=== PATIENT | male | born 1970 | race Caucasian/White ===

== ENCOUNTER 2022-12-08 08:22 | Outpatient (RCR) | payer OTHER, SELFPAY ==
--- NOTE | 2022-12-08 09:31 | PTOPEVAL1 ---
Assessment and note entered by JT File, PT Evaluation Information Assessment Status Evaluation Diagnosis R RTC repair Onset 09/20/22 Subjective Information surgery was on 10/19/22. 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 he reports he missed a step at work and fell directly on a pallet on his R shoulder. he reports it was immediately weak. he thought it was dislocated but found out through imaging that the RTC was torn. he reports he hasd surgery on 10/19/22 to repair the tear. he reports he got the sling off about 9-10 days ago. he reports for work he must be able to work with his UE's for full work days. he reports he has to reach and perform UE activities at shoulder level and above. he reports he would need to push and pull 100lbs of force. he reports he also must lift 50-100lbs. he reports he does have a mechanical hoist at work to help with lifting. he reports he has to use a hammer/bumper bar to move things at work. Reported Pain Level Pain Score 0: Self Report Assessment PT Clinical Summary mr. cope is a 52 yo manw ho presents to skilled PT services for rehab following injury and surgery to the R shoulder. he tore his RTC at work and had a repair on 10/19/22. he is now transitioned to phase 2 of his rehab protocol and is ready to begin passive, active assisted, and active rom exercises. he is still limited to no resistance exercises of the R shoulder. he would benefit from continued skilled PT to improve his deficits in rom, strength, and functional lifting to return to prior level work and functional activity performance. Plan of Care Interventions Electrical Stimulation,Hot Pack/Cold Pack,Manual Therapy,Neuro Re-education,Patient/Caregiver Educati,Therapeutic Activities,Therapeutic Exercise PT Services Indicated Yes Treatment Frequency and 3x weekly for 24 visits Duration These treatments will address the objective and functional deficits as defined above. The patient will be advanced safely and appropriately in order for the patient to progress towards his/her prior level of function. Additional exercises will be introduced and as well as a comprehensive home exercise program upon discharge, if needed, ?to ensure carryover of functional gains achieved in the clinic. This treatment plan has been reviewed and agreement upon by the patient.
--- NOTE | 2022-12-28 09:06 | PTOPPROGNS ---
Assessment and note entered by JT File, PT Evaluation Information Assessment Status Progress Diagnosis R RTC repair Onset 09/20/22 Subjective Information patient reports the R shoulder feels Alright this date. he reports he had a lot of pain in the R shoulder when he woke up yesterday. however, he was able to manage to loosen it up with heat and exercises at home. Assessment PT Clinical Summary mr. cope presents to skilled PT for his 10th skilled therapy visit. he presents today with improved passive and active R shoulder mobility. however, he is still limited to no strengthening exercises, and has moderate to severe pain in the R shoulder at times. despite this pain, patient has made progressed each week, and is managing pain with exercises/modalities. he would benefit from continued skilled PT per initial POC to achieve goals set forth at initial evaluation. Plan of Care Interventions Electrical Stimulation,Hot Pack/Cold Pack,Manual Therapy,Neuro Re-education,Patient/Caregiver Educati,Therapeutic Activities,Therapeutic Exercise PT Services Indicated Yes Treatment Frequency and continue skilled PT 3x weekly for 14 more visits Duration per initial POC These treatments will address the objective and functional deficits as defined above. The patient will be advanced safely and appropriately in order for the patient to progress towards his/her prior level of function. Additional exercises will be introduced and as well as a comprehensive home exercise program upon discharge, if needed, ?to ensure carryover of functional gains achieved in the clinic. This treatment plan has been reviewed and agreement upon by the patient.
--- NOTE | 2023-01-14 09:03 | PTOPPROGNS ---
Assessment and note entered by JT File, PT Evaluation Information Assessment Status Progress Diagnosis R RTC repair Onset 09/20/22 Subjective Information patient reports he is sore today, but reports he is not in much pain today. he reports he has a follow up with the surgeon on tuesday. he is hopeful to begin strengthening of the R shoulder. Assessment PT Clinical Summary mr. cope presents to skilled PT for his 18th skilled therapy visit today. he is 12 weeks +3 days from his R shoulder surgery. he presents today with improved R shoulder active and passive mobility. however, he still has catches of sharp pain at times, and pain with end rom passive mobility of the R shoulder. he would do well to continue skilled PT to improve ROM to achieve goals and prior functional reaching. he would benefit from the addition of shoulder strengthening exercises to improve his functional reaching/lifting and to help reduce pain in the R shoulder musculature. plan to continue skilled PT per frequency and duration listed on the initial evaluation. Plan of Care Interventions Electrical Stimulation,Hot Pack/Cold Pack,Manual Therapy,Neuro Re-education,Patient/Caregiver Educati,Therapeutic Activities,Therapeutic Exercise PT Services Indicated Yes Treatment Frequency and continue skilled PT 3x weekly for 6 more visits Duration per the initial POC These treatments will address the objective and functional deficits as defined above. The patient will be advanced safely and appropriately in order for the patient to progress towards his/her prior level of function. Additional exercises will be introduced and as well as a comprehensive home exercise program upon discharge, if needed, ?to ensure carryover of functional gains achieved in the clinic. This treatment plan has been reviewed and agreement upon by the patient.
--- NOTE | 2023-02-10 18:14 | PTOPREEVAL ---
Assessment and note entered by JT File, PT Evaluation Information Assessment Status Re-evaluation Diagnosis R RTC repair Onset 09/20/22 Subjective Information patient reports he continues to feel stiff in the R shoulder. he reports he has low pain today, but at times has bouts of increased pain as well in the R shoulder. he reports he needs to be able to lift overhead moderate to heavy weight to return to full work duties. Reported Pain Level Pain Score 3: Self Report Assessment PT Clinical Summary mr. cope presents to skilled PT for his 24th skilled PT visit following R shoulder surgery. he continues to present with tightness and weakness in the R shoulder. he is limited in arom flexion, ER, and IR. he has met goals for HEP performance, but continues to have not met goals for rom, strength, and functional abilities for return to work. he would benefit from continued skilled PT to improve his objective/functional deficits and achieve all goals in preparation for full return to work duties. Plan of Care Interventions Electrical Stimulation,Hot Pack/Cold Pack,Manual Therapy,Neuro Re-education,Patient/Caregiver Educati,Therapeutic Activities,Therapeutic Exercise PT Services Indicated Yes Treatment Frequency and continue skilled PT 3x weekly for 24 more visits Duration These treatments will address the objective and functional deficits as defined above. The patient will be advanced safely and appropriately in order for the patient to progress towards his/her prior level of function. Additional exercises will be introduced and as well as a comprehensive home exercise program upon discharge, if needed, ?to ensure carryover of functional gains achieved in the clinic. This treatment plan has been reviewed and agreement upon by the patient.
== END 2023-03-07 19:00 | disposition home or self-care (01) ==
LOC: CHSPT 08:22
DX: S46.011D Strain of muscle(s) and tendon(s) of the rotator cuff of right shoulder, subsequent encounter (principal)
CPT/HCPCS: 97014; 97110; 97140; 97150; 97161; G0283

== ENCOUNTER 2023-05-30 07:52 | Outpatient (RCR) | payer OTHER, SELFPAY ==
[2023-05-30 07:58] VITALS: BP_SYST 124
--- NOTE | 2023-05-30 08:58 | OPREHPOC ---
Outpatient Therapy Plan of Care This is a Multidisciplinary Plan of Care that may contain components documented by all disciplines (PT, OT, and ST.) PT Problem 1 PT Problem #1 Knowledge Deficit PT Goal 1 Goal Patient to demonstrate independence with HEP Target Visit 6 PT Problem 2 PT Problem #2 Pain PT Goal 1 Goal 1. Patient to report highest pain at 2/10 2. Patient to report ability to sleep with no disturbance due to R shoulder pain Target Visit 12 PT Problem 3 PT Problem #3 Impaired Range of Motion PT Goal 1 Goal Patient to demonstrate 160 deg of R shoulder flexion and abduction to return to work and house hold tasks at PLOF Target Visit 12 PT Problem 4 PT Problem #4 Impaired Strength PT Goal 1 Goal Patient to improve R shoulder strength to 5/5 to return to full work duties without increase in pain or difficulty Target Visit 12
--- NOTE | 2023-05-30 08:58 | PTOPEVAL1 ---
Assessment and note entered by Yola Fenton DPT Evaluation Information Assessment Status Evaluation Diagnosis R shoulder pain Onset 04/05/23 Subjective Information Patient had R RTC repair in Sep 2022. He was having pain with all activities and found out one of his anchors came lose and had to have a revision on 04/05/23. He reports he was in a sling for 6 weeks but has now been released from wearing the sling. He returns to MD 6 weeks. He has difficulty with reaching, dressing and performing house hold activities. He has not worked since initial surgery. 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 Reported Pain Level Pain Score 3: Self Report Assessment PT Clinical Summary Patient is a 53 year old male who presents to PT with R shoulder pain s/p R RTC repair on 04/05/23. Patient demonstrates decreased R shoulder ROM, decreased R shoulder strength and increase pain limiting his ability to dress, sleep complete house hold tasks and return to work. Patient would benefit from skilled PT to address impairments and return to PLOF. Plan of Care Interventions Electrical Stimulation,Hot Pack/Cold Pack,Manual Therapy,Mechanical Traction,Neuro Re-education, Patient/Caregiver Educati,Therapeutic Activities, Therapeutic Exercise PT Services Indicated Yes Treatment Frequency and 2x weekly for 12 visits Duration These treatments will address the objective and functional deficits as defined above. The patient will be advanced safely and appropriately in order for the patient to progress towards his/her prior level of function. Additional exercises will be introduced and as well as a comprehensive home exercise program upon discharge, if needed, ?to ensure carryover of functional gains achieved in the clinic. This treatment plan has been reviewed and agreement upon by the patient.
[2023-07-04 07:46] VITALS: BP_SYST 124
--- NOTE | 2023-07-04 08:49 | OPREHPOC ---
Outpatient Therapy Plan of Care This is a Multidisciplinary Plan of Care that may contain components documented by all disciplines (PT, OT, and ST.) PT Problem 1 PT Problem #1 Knowledge Deficit PT Goal 1 Goal Patient to demonstrate independence with HEP Target Visit 12 Comment updated PT Problem 2 PT Problem #2 Pain PT Goal 1 Goal 1. Patient to report highest pain at 2/10 2. Patient to report ability to sleep with no disturbance due to R shoulder pain Target Visit 12 Comment continue PT Problem 3 PT Problem #3 Impaired Range of Motion PT Goal 1 Goal Patient to demonstrate 160 deg of R shoulder flexion and abduction to return to work and house hold tasks at PLOF Target Visit 12 Comment continue PT Problem 4 PT Problem #4 Impaired Strength PT Goal 1 Goal Patient to improve R shoulder strength to 5/5 to return to full work duties without increase in pain or difficulty Target Visit 12 Comment continue
--- NOTE | 2023-07-04 08:49 | PTOPPROG ---
Assessment and note entered by Yola Fenton DPT Evaluation Information Assessment Status Progress Diagnosis R shoulder pain Onset 04/05/23 Subjective Information Patient reports that he thinks his shoulder is progressing well. He reports he continues to lack strength. He reports he is back to sleeping in bed on his left side. He reports he is waking up in the middle of the night due to pain. He reports he returns to the MD on 07/04/23 (today) Assessment PT Clinical Summary Mr. Martin has been seen for 10 visits of skilled PT with progress made towards goals. Patient demonstrates improved R shoulder AROM and PROM but is limited by pain at end range. He is able to achieve 95 deg of active R shoulder flexion and 134 deg of passive R shoulder flexion. He has not been progressed with R shoulder strengthening at this time due to protocol restrictions. He returns to MD on 07/04/23 and will be progressed per MD recommendations. Plan of Care Interventions Electrical Stimulation,Hot Pack/Cold Pack,Manual Therapy,Mechanical Traction,Neuro Re-education, Patient/Caregiver Educati,Therapeutic Activities, Therapeutic Exercise PT Services Indicated Yes Treatment Frequency and continue with remaining 2 visits Duration These treatments will address the objective and functional deficits as defined above. The patient will be advanced safely and appropriately in order for the patient to progress towards his/her prior level of function. Additional exercises will be introduced and as well as a comprehensive home exercise program upon discharge, if needed, ?to ensure carryover of functional gains achieved in the clinic. This treatment plan has been reviewed and agreement upon by the patient.
[2023-07-11 07:45] VITALS: BP_SYST 124
--- NOTE | 2023-07-11 08:44 | OPREHPOC ---
Outpatient Therapy Plan of Care This is a Multidisciplinary Plan of Care that may contain components documented by all disciplines (PT, OT, and ST.) PT Problem 1 PT Problem #1 Knowledge Deficit PT Goal 1 Goal Patient to demonstrate independence with HEP Target Visit 24 Comment updated PT Problem 2 PT Problem #2 Pain PT Goal 1 Goal 1. Patient to report highest pain at 2/10 2. Patient to report ability to sleep with no disturbance due to R shoulder pain Target Visit 24 Comment continue PT Problem 3 PT Problem #3 Impaired Range of Motion PT Goal 1 Goal Patient to demonstrate 160 deg of R shoulder flexion and abduction to return to work and house hold tasks at PLOF Target Visit 24 Comment continue PT Problem 4 PT Problem #4 Impaired Strength PT Goal 1 Goal Patient to improve R shoulder strength to 5/5 to return to full work duties without increase in pain or difficulty Target Visit 24 Comment continue
--- NOTE | 2023-07-11 08:46 | PTOPREEVAL ---
Assessment and note entered by Yola Fenton DPT Evaluation Information Assessment Status Re-evaluation Diagnosis R shoulder pain Onset 04/05/23 Subjective Information Patient reports that MD was happy with his shoulder. He reports he still feels very weak and has some popping. He reports MD wants him to continue with PT at this time. Reported Pain Level Pain Score 2: Self Report Assessment PT Clinical Summary Mr. Martin has been seen for 12 visits of skilled PT with progress made towards goals. Patient demonstrates improved R shoulder AROM and PROM but is limited by pain at end range. He is able to achieve 125 deg of active R shoulder flexion and 134 deg of passive R shoulder flexion. He has now been progressed with light strengthening below 90 deg per MD recommendations. He will benefit from continued skilled PT per MD recommendations to return to work at [employer]. Plan of Care Interventions Electrical Stimulation,Hot Pack/Cold Pack,Manual Therapy,Mechanical Traction,Neuro Re-education, Patient/Caregiver Educati,Therapeutic Activities, Therapeutic Exercise PT Services Indicated Yes Treatment Frequency and continue 2x weekly for 12 visits Duration These treatments will address the objective and functional deficits as defined above. The patient will be advanced safely and appropriately in order for the patient to progress towards his/her prior level of function. Additional exercises will be introduced and as well as a comprehensive home exercise program upon discharge, if needed, ?to ensure carryover of functional gains achieved in the clinic. This treatment plan has been reviewed and agreement upon by the patient.
[2023-08-15 07:46] VITALS: BP_SYST 140
--- NOTE | 2023-08-15 08:28 | OPREHPOC ---
Outpatient Therapy Plan of Care This is a Multidisciplinary Plan of Care that may contain components documented by all disciplines (PT, OT, and ST.) PT Problem 1 PT Problem #1 Knowledge Deficit PT Goal 1 Goal Patient to demonstrate independence with HEP Target Visit 36 Comment updated PT Problem 2 PT Problem #2 Pain PT Goal 1 Goal 1. Patient to report highest pain at 2/10 2. Patient to report ability to sleep with no disturbance due to R shoulder pain Target Visit 36 Comment continue PT Problem 3 PT Problem #3 Impaired Range of Motion PT Goal 1 Goal Patient to demonstrate 160 deg of R shoulder flexion and abduction to return to work and house hold tasks at PLOF Target Visit 36 Comment continue PT Problem 4 PT Problem #4 Impaired Strength PT Goal 1 Goal Patient to improve R shoulder strength to 5/5 to return to full work duties without increase in pain or difficulty Target Visit 36 Comment continue
--- NOTE | 2023-08-15 08:29 | PTOPREEVAL ---
Assessment and note entered by Yola Fenton DPT Evaluation Information Assessment Status Re-evaluation Diagnosis R shoulder pain Onset 04/05/23 Subjective Information patient returns to MD this afternoon. He reports that he has improved ROM but past 90 deg is painful. He reports he has been able to sleep better. push and pulling do not cause increase pain. He continues to have difficulty with reaching to shelves. Reported Pain Level Pain Score 3: Self Report Assessment PT Clinical Summary Mr. Martin has been seen for 22 visits of skilled PT with progress made towards goals. Patient demonstrates improved R shoulder AROM and PROM. He is able to achieve 140 deg of active R shoulder flexion and 3+/5 R shoulder strength. He reports ability to push and pull without pain but continues to have difficulty with reaching over head. He will benefit from continued skilled PT per MD recommendations to return to work at [employer]. Plan of Care Interventions Electrical Stimulation,Hot Pack/Cold Pack,Manual Therapy,Mechanical Traction,Neuro Re-education, Patient/Caregiver Educati,Therapeutic Activities, Therapeutic Exercise PT Services Indicated Yes Treatment Frequency and continue 2x weekly as recommended by MD Duration These treatments will address the objective and functional deficits as defined above. The patient will be advanced safely and appropriately in order for the patient to progress towards his/her prior level of function. Additional exercises will be introduced and as well as a comprehensive home exercise program upon discharge, if needed, ?to ensure carryover of functional gains achieved in the clinic. This treatment plan has been reviewed and agreement upon by the patient.
== END 2023-08-15 08:01 | disposition still patient (30) ==
LOC: CHSPT 07:52
DX: S46.011D Strain of muscle(s) and tendon(s) of the rotator cuff of right shoulder, subsequent encounter (principal); Z98.890 Other specified postprocedural states
CPT/HCPCS: 97014; 97110; 97150; 97161; G0283

== ENCOUNTER 2023-08-31 08:05 | Outpatient (RCR) | payer OTHER, SELFPAY ==
[2023-08-31 08:02] VITALS: BP_SYST 140
--- NOTE | 2023-09-19 08:52 | PCPTNOTE ---
Mr. Martin cancelled his appointment today due to inclement weather. Jona Obrien, MPT
--- NOTE | 2023-10-05 08:46 | OPREHPOC ---
Outpatient Therapy Plan of Care This is a Multidisciplinary Plan of Care that may contain components documented by all disciplines (PT, OT, and ST.) PT Problem 1 PT Problem #1 Knowledge Deficit PT Goal 1 Goal Patient to demonstrate independence with HEP Target Visit 36 Progress Met Comment updated PT Problem 2 PT Problem #2 Pain PT Goal 1 Goal 1. Patient to report highest pain at 2/10 2. Patient to report ability to sleep with no disturbance due to R shoulder pain Target Visit 36 Progress Not Met Comment continue PT Problem 3 PT Problem #3 Impaired Range of Motion PT Goal 1 Goal Patient to demonstrate 160 deg of R shoulder flexion and abduction to return to work and house hold tasks at PLOF Target Visit 36 Progress Not Met Comment continue PT Problem 4 PT Problem #4 Impaired Strength PT Goal 1 Goal Patient to improve R shoulder strength to 5/5 to return to full work duties without increase in pain or difficulty Target Visit 36 Progress Not Met Comment continue
--- NOTE | 2023-10-05 08:46 | PTOPPROG ---
Assessment and note entered by JT File, PT Evaluation Information Assessment Status Progress Diagnosis R shoulder pain Onset 04/05/23 Subjective Information patient returns to MD this afternoon. He reports that he has improved ROM but past 90 deg is painful. He reports he has been able to sleep better. push and pulling do not cause increase pain. He continues to have difficulty with reaching to shelves. Assessment PT Clinical Summary mr. cope is a 53 yo man who presents to skilled PT services for his 30th skilled therapy visit since revision of RTC tear/repair. he has had an injection recently that has only helped a little. he has no pain at rest, but continues to have pain in the anterior R shoulder with overhead reaching . he is also palpably tender to the anterior R shoulder over the long head of the biceps tendon. he continues to lack achievement of goals for skilled PT for ROM, strength, pain, and functional movement. thus, he is not ready yet to return to work. patient would benefit from continued skilled PT to address his remaining objective/functional deficits to achieve full goals and return to prior level work performance and quality of life. Plan of Care Interventions Therapeutic Exercise,Patient/Caregiver Educati, Manual Therapy,Neuro Re-education,Therapeutic Activities,Hot Pack/Cold Pack,Mechanical Traction, Electrical Stimulation PT Services Indicated Yes Treatment Frequency and continue skilled PT per last re-evaluation on These treatments will address the objective and functional deficits as defined above. The patient will be advanced safely and appropriately in order for the patient to progress towards his/her prior level of function. Additional exercises will be introduced and as well as a comprehensive home exercise program upon discharge, if needed, ?to ensure carryover of functional gains achieved in the clinic. This treatment plan has been reviewed and agreement upon by the patient.
[2023-10-25 08:15] VITALS: BP_SYST 160
--- NOTE | 2023-10-25 09:05 | OPREHPOC ---
Outpatient Therapy Plan of Care This is a Multidisciplinary Plan of Care that may contain components documented by all disciplines (PT, OT, and ST.) PT Problem 1 PT Problem #1 Knowledge Deficit PT Goal 1 Goal Patient to demonstrate independence with HEP Target Visit 48 Progress Met Comment updated PT Problem 2 PT Problem #2 Pain PT Goal 1 Goal 1. Patient to report highest pain at 2/10 2. Patient to report ability to sleep with no disturbance due to R shoulder pain Target Visit 48 Progress Not Met Comment continue PT Problem 3 PT Problem #3 Impaired Range of Motion PT Goal 1 Goal Patient to demonstrate 160 deg of R shoulder flexion and abduction to return to work and house hold tasks at PLOF Target Visit 48 Progress Not Met Comment continue PT Problem 4 PT Problem #4 Impaired Strength PT Goal 1 Goal Patient to improve R shoulder strength to 5/5 to return to full work duties without increase in pain or difficulty Target Visit 48 Progress Not Met Comment continue
--- NOTE | 2023-10-25 09:05 | PTOPPROG ---
Assessment and note entered by Jesusita Ryan, PT Evaluation Information Assessment Status Progress Diagnosis s/p R RCR Onset 04/05/23 Subjective Information Jona Martin reports that last time he saw his surgeon he was referred to pain management. He will see pain management on 11/04/23 and his next surgeon follow up on 11/21/23. He was prescribed an anti-inflammatory which does seem to be helping a little bit. He was also instructed to continue PT with restrictions of no overhead work. He continues to have difficulty lifting his arm past shoulder height due to pain. Assessment PT Clinical Summary Jona Martin has completed 34 skilled PT visits following a right rotator cuff repair performed on 04/05/23. He is reporting continued pain deep in the front of the right shoulder that increases as he lifts past shoulder height. He has tried an injection with no relief and has recently started an oral anti-inflammatory medication that does seem to help a little. At his last surgeon follow up, he was referred to continue skilled PT with no overhead work and he was referred to pain management. He objectively demonstrates improved right shoulder AROM since his last progress note dated 10/05/23. He continues to have limitations in right shoulder AROM with pain noted with flexion and abduction and decreased right shoulder strength with pain elicited with flexion and abduction testing. He will continue to benefit from skilled PT to further improve AROM, strength, and functional abilities. Plan of Care Interventions Electrical Stimulation,Manual Therapy,Patient/ Caregiver Educati,Therapeutic Activities, Therapeutic Exercise PT Services Indicated Yes Treatment Frequency and 2 times a week for 12 visits Duration These treatments will address the objective and functional deficits as defined above. The patient will be advanced safely and appropriately in order for the patient to progress towards his/her prior level of function. Additional exercises will be introduced and as well as a comprehensive home exercise program upon discharge, if needed, ?to ensure carryover of functional gains achieved in the clinic. This treatment plan has been reviewed and agreement upon by the patient.
== END 2023-11-28 07:53 | disposition still patient (30) ==
LOC: CHSPT 08:05
DX: S46.011D Strain of muscle(s) and tendon(s) of the rotator cuff of right shoulder, subsequent encounter (principal); Z98.890 Other specified postprocedural states
CPT/HCPCS: 97110; 97140; 97150; 97530

== ENCOUNTER 2023-12-02 07:57 | Outpatient (RCR) | payer OTHER, SELFPAY ==
[2023-12-02 07:53] VITALS: BP_SYST 160
--- NOTE | 2023-12-12 08:24 | PCPTNOTE ---
patient states he did not get a reminder call and is waiting to hear from doctor
--- NOTE | 2023-12-16 07:48 | PCPTNOTE ---
patient called due to cancel due to appointment conflict
--- NOTE | 2023-12-22 15:15 | OPREHPOC ---
Outpatient Therapy Plan of Care This is a Multidisciplinary Plan of Care that may contain components documented by all disciplines (PT, OT, and ST.) PT Problem 1 PT Problem #1 Knowledge Deficit PT Goal 1 Goal Patient to demonstrate independence with HEP Target Visit 48 Progress Met Comment . PT Problem 2 PT Problem #2 Pain PT Goal 1 Goal 1. Patient to report highest pain at 2/10 2. Patient to report ability to sleep with no disturbance due to R shoulder pain Target Visit 54 Progress Not Met Comment continue PT Problem 3 PT Problem #3 Impaired Range of Motion PT Goal 1 Goal Patient to demonstrate 160 deg of R shoulder flexion and abduction to return to work and house hold tasks at PLOF Target Visit 54 Progress Not Met Comment continue PT Problem 4 PT Problem #4 Impaired Strength PT Goal 1 Goal Patient to improve R shoulder strength to 5/5 to return to full work duties without increase in pain or difficulty Target Visit 54 Progress Not Met Comment continue PT Problem 5 PT Problem #5 Impaired Functional Mobil PT Goal 1 Goal 1. patient to perform functional lifting of 20lbs overhead with the R UE to perform work related duties Target Visit 54
--- NOTE | 2023-12-22 15:15 | PTOPREEVAL ---
Assessment and note entered by JT File, PT Evaluation Information Assessment Status Re-evaluation Diagnosis s/p R RCR Onset 04/05/23 Subjective Information patient reports he continues to have pain in the R shoulder with reaching and lifting overhead. he reports it is also still weak lifting overhead. he reports he had a procedure recently to briefly deaden nerves in the neck (spinal block) that may be affecting the shoulder. however, he reports he only saw a 30-40% improvement, and thus will not be seeking a more permanent nerve ablation. he reports some other options of an implantable stimulator are on the table, but he is not sure if this is an option he would like to seek. he reports lately he has been pushing it more at home. he reports he has been trying to get involved in yard work and landscaping around his home with his to improve his strength. he reports he is still most painful over the front of the shoulder. Reported Pain Level Pain Score 3: Self Report Assessment PT Clinical Summary mr. cope presents to skilled PT services for his 46th skilled PT visit after R RCR repair/revision . he continues to display pain in the R shoulder with overhead reaching and lifting activities. he also presents with deficits in R shoulder strength , and full active/functional rom. he is unable to return to prior work related duties due to weakness and pain in the R shoulder. he also has yet to meet all goals for skilled PT. he would benefit from continued skilled PT to address his remaining objective/functional deficits and return to prior level work performance. Plan of Care Interventions Therapeutic Exercise,Patient/Caregiver Educati, Manual Therapy,Therapeutic Activities,Electrical Stimulation PT Services Indicated Yes Treatment Frequency and continue skilled PT 2x weekly for 8 more visits Duration These treatments will address the objective and functional deficits as defined above. The patient will be advanced safely and appropriately in order for the patient to progress towards his/her prior level of function. Additional exercises will be introduced and as well as a comprehensive home exercise program upon discharge, if needed, ?to ensure carryover of functional gains achieved in the clinic. This treatment plan has been reviewed and agreement upon by the patient.
--- NOTE | 2024-01-18 09:27 | OPREHPOC ---
Outpatient Therapy Plan of Care This is a Multidisciplinary Plan of Care that may contain components documented by all disciplines (PT, OT, and ST.) PT Problem 1 PT Problem #1 Knowledge Deficit PT Goal 1 Goal Patient to demonstrate independence with HEP Target Visit 48 Progress Met PT Problem 2 PT Problem #2 Pain PT Goal 1 Goal 1. Patient to report highest pain at 2/10 2. Patient to report ability to sleep with no disturbance due to R shoulder pain Target Visit 61 Progress Not Met Comment continue PT Problem 3 PT Problem #3 Impaired Range of Motion PT Goal 1 Goal Patient to demonstrate 160 deg of R shoulder flexion and abduction to return to work and house hold tasks at PLOF Target Visit 61 Progress Not Met Comment continue PT Problem 4 PT Problem #4 Impaired Strength PT Goal 1 Goal Patient to improve R shoulder strength to 5/5 to return to full work duties without increase in pain or difficulty Target Visit 61 Progress Not Met Comment continue PT Problem 5 PT Problem #5 Impaired Functional Mobil PT Goal 1 Goal 1. patient to perform functional lifting of 20lbs overhead with the R UE to perform work related duties Target Visit 61 Progress Not Met
--- NOTE | 2024-01-18 09:27 | PTOPPROG ---
Assessment and note entered by Jesusita Ryan, PT Evaluation Information Assessment Status Progress Diagnosis s/p R RCR Onset 04/05/23 Subjective Information Jona Martin reports his right shoulder is better overall but he still has pain with reaching overhead without support to his arm. He also notes difficulty reaching behind his back. He is not taking pain medication. He does all daily activities independently but can not swing a hammer up above shoulder height and he can not throw a ball for his dog. He reports he pushes through the pain to get daily activities done. Assessment PT Clinical Summary Jona Martin has completed 54 skilled PT visits for right shoulder pain following a rotator cuff repair performed on 04/05/23. He is reporting ongoing pain in the right shoulder with overhead flexion, reaching behind the back, and reaching behind his head. He notes weakness with anything overhead. He objectively demonstrates improved right shoulder active and passive ROM as well as improved strength. He has had a plateau in right shoulder AROM since last progress note on 12/21/23. He continues to have tenderness at the right bicipital groove and anterior shoulder as well as positive special tests consistent with shoulder impingement and bicep tendonitis. He will see his surgeon again on 01/30/24. We will continue skilled PT 2 times a week for the remainder of his current plan of care (7 visits). Plan of Care Interventions Manual Therapy,Patient/Caregiver Educati, Therapeutic Activities,Therapeutic Exercise PT Services Indicated Yes Treatment Frequency and 2 times a week for 7 visits Duration These treatments will address the objective and functional deficits as defined above. The patient will be advanced safely and appropriately in order for the patient to progress towards his/her prior level of function. Additional exercises will be introduced and as well as a comprehensive home exercise program upon discharge, if needed, ?to ensure carryover of functional gains achieved in the clinic. This treatment plan has been reviewed and agreement upon by the patient.
--- NOTE | 2024-02-06 10:28 | PTOPPROG ---
Assessment and note entered by Jona Obrien Evaluation Information Assessment Status Progress Diagnosis s/p right rotator cuff repair Onset 04/05/23 Subjective Information Pt. continues to describe pain on the front side of the right shoulder. He states that pain is constant with use of the right arm. He states that he does everything he is capable of doing at home and tries to complete all yard work. He states that he has not yet returned to work. He reports that his doctor requested that he begin work condition without restriction. Assessment PT Clinical Summary Pt. has demonstrated recent progress in regards to strength and ROM. Despite this progress still note weakness and pain. At this time pt. has additional orders to begin work conditioning. Recommend continued rehab focusing on strength and improving strength in order to complete work specific tasks as noted in his job description. Plan of Care Interventions Electrical Stimulation,Hot Pack/Cold Pack Other Interventions work conditioning PT Services Indicated Yes Treatment Frequency and Work conditioning x 2 x/week x 12 visits Duration These treatments will address the objective and functional deficits as defined above. The patient will be advanced safely and appropriately in order for the patient to progress towards his/her prior level of function. Additional exercises will be introduced and as well as a comprehensive home exercise program upon discharge, if needed, ?to ensure carryover of functional gains achieved in the clinic. This treatment plan has been reviewed and agreement upon by the patient.
--- NOTE | 2024-02-08 15:24 | PCPTNOTE ---
I reviewed the License Pending Therapist's documentation and agree with the findings. Jona Obrien, [facility]
--- NOTE | 2024-02-16 11:55 | PCPTNOTE ---
I reviewed the License Pending Therapist's documentation and agree with the findings.
--- NOTE | 2024-02-20 12:03 | PCPTNOTE ---
On 02/20/24, the license pending SHUTTLE INSPECTOR, [Carly Dunlap ], provided care and completed [facility] documentation on this patient. I have reviewed the license pending SHUTTLE INSPECTOR's documentation and agree with the findings.
--- NOTE | 2024-02-23 07:55 | PCPTNOTE ---
Patient called & cancelled scheduled appointment this date due to [illness ]
== END 2024-02-29 20:00 | disposition still patient (30) ==
LOC: CHSPT 07:57
DX: S46.011D Strain of muscle(s) and tendon(s) of the rotator cuff of right shoulder, subsequent encounter (principal); Z98.890 Other specified postprocedural states
CPT/HCPCS: 97110; 97140; 97530; 97545

== ENCOUNTER 2024-03-06 08:04 | Outpatient (RCR) | payer OTHER, SELFPAY ==
[2024-03-06 08:01] VITALS: BP_SYST 160
--- NOTE | 2024-03-07 07:08 | PCPTNOTE ---
I reviewed the License Pending Therapist's documentation and agree with the findings from 03/06/24.
--- NOTE | 2024-03-08 14:07 | PCPTNOTE ---
I reviewed the License Pending Therapist's documentation and agree with the findings.
--- NOTE | 2024-04-24 08:11 | PCPTNOTE ---
patient returned to work
== END 2024-03-08 09:00 | disposition home or self-care (01) ==
LOC: CHSPT 08:04
DX: S46.011D Strain of muscle(s) and tendon(s) of the rotator cuff of right shoulder, subsequent encounter (principal); Z98.890 Other specified postprocedural states
CPT/HCPCS: 97545